=== PATIENT | male | born 1960 | race Caucasian/White ===

== ENCOUNTER 2020-07-12 07:22 | Day surgery (SDC) | payer OTHER ==
[~2020-07-12] VITALS: Ht 177.8 cm; Wt 75.8 kg
[~2020-07-12 07:22] MED LIST: Gabapentin PO
[2020-07-12] MEDS ORDERED: LACTATED RINGERS 1,000 ML IV SCH (07:32)
[2020-07-12 07:43] VITALS: BP 143/90
[2020-07-12] MEDS ORDERED: CHLORHEXIDINE 15 ML UDC MM ONE (08:00)
[2020-07-12] MEDS ORDERED: FENTANYL PF 100 MCG/2ML ONE (08:03)
[2020-07-12] MEDS ORDERED: MIDAZOLAM 1 MG/ML, 2ML ONE (08:03)
[2020-07-12] MEDS ORDERED: BUPIVACAINE/PF 0.25% ONE (08:40)
[2020-07-12] MEDS ORDERED: ACETAMINOPHEN 325 MG TABLET PO PRN (09:30)
[2020-07-12] MEDS ORDERED: PROMETHAZINE 25 MG/ML, 1ML IVPush PRN (09:30)
[2020-07-12] MEDS ORDERED: OXYcodone 5 MG/5 ML ORAL.SOL UDC PO PRN (09:30)
[2020-07-12] MEDS ORDERED: FENTANYL PF 100 MCG/2ML IV PRN (09:30)
[2020-07-12] MEDS ORDERED: MEPERIDINE/PF 25MG/0.5ML IVPush PRN (09:30)
[2020-07-12] MEDS ORDERED: BACITRACIN OINT 500U/GM, 15 GM ONE (09:36)
[2020-07-12] MEDS ORDERED: PROPOFOL 10 MG/ML, 20ML ONE (10:33)
[2020-07-12] MEDS ORDERED: KETOROLAC 30 MG/1 ML ONE (10:33)
[2020-07-12] MEDS ORDERED: LIDOCAINE-MPF 2% ,5ML ONE (10:33)
[2020-07-12] MEDS ORDERED: DEXAMETHASONE 4 MG/ML, 1ML ONE (10:33)
[2020-07-12] MEDS ORDERED: ONDANSETRON 2MG/ML, 2ML ONE (10:33)
[2020-07-12] MEDS ORDERED: CEFAZOLIN 1,000 MG ONE (10:33)
[2020-07-12] MEDS ORDERED: OXYcodone 5 MG/5 ML ORAL.SOL UDC ONE (11:18)
== END 2020-07-12 12:45 | disposition home or self-care (01) ==
LOC: OUT 07:22
PROVIDERS: ATTEND Urology
DX: N43.42 Spermatocele of epididymis, multiple (principal); Z20.828 Contact with and (suspected) exposure to other viral communicable diseases; E78.5 Hyperlipidemia, unspecified; Z79.891 Long term (current) use of opiate analgesic; Z79.899 Other long term (current) drug therapy; Z87.891 Personal history of nicotine dependence; Z88.5 Allergy status to narcotic agent; Z83.3 Family history of diabetes mellitus; Z82.49 Family history of ischemic heart disease and other diseases of the circulatory system
CPT/HCPCS: 36415; 54840; 87635; 88304; 93005; J0690; J1100; J1885; J2250; J2405; J2704; J3010; J3490